=== PATIENT | male | born 1990 | race Caucasian/White ===

== ENCOUNTER 2022-05-05 19:54 | Emergency (ER) | payer SELFPAY ==
[2022-05-05 19:58] VITALS: BP 152/97; PULSE 78; RESP 18; TEMP 37.1; O2SAT 96
[2022-05-05] MEDS: Amoxicillin 875 MG TAB PO (22:40)
[2022-05-05] MEDS: Lidocaine 2% Viscous 15 ML CUP PO (22:48)
--- NOTE | 2022-05-05 22:52 | W.ED.GENAD ---
Discharge Plan Disposition Patient Disposition: Home Condition: Improving Discharge Details Clinical Impression: Dental infection Primary Care Provider: Talya,Local ED Provider: Yobani Quarles Home Meds and New Rx's Prescriptions: New amoxicillin 875 mg tablet 875 mg PO BID Qty: 20 0RF Discharge Instructions Instructions: Dental Abscess (ED) Additional Instructions: Amoxicillin as directed. [id number] medications as directed for symptomatic control. Please watch for new or worsening symptoms and return to the ER for any concerns. Lastly, using the dental list provided, contacted the local dentist tomorrow to see who will be able to evaluate you as an outpatient first. Medical Decision Making 32-year-old gentleman, current smoker, reports right lower dental pain over the past couple of days. Clinically he appears well, nontoxic. He does report ongoing discomfort, and would be open to a dental block. Dental block performed without difficulty, reports pain has almost completely resolved. First dose amoxicillin provided. We will provide a dental list for all of the local dentist. Standard discharge and return precautions were provided. Patient understands, is agreeable to this plan, and has no additional questions or concerns upon discharge. This documentation was generated using [employer] system, please disregard any oddities of phrase or misspellings. Sign Out No HPI General Mode of arrival: ambulatory. Date/Time Provider Initiated Documentation: 05/05/22 21:40. Limitations to Documentation: no limitations. Information obtained by: patient. History of Present Illness 32 year old M presents to the emergency department with the chief complaint of R lower dental pain, described as moderate, with intensity rated at 4. Quality is described as aching, and is localized to the mouth. Patient reports no radiation. Patient started experiencing this day(s) (2) and it has been constant. No relieving factors improve symptom(s), No exacerbating factors reported . Patient notes no other symptoms.. Patient did receive the following treatments prior to arrival, NSAID Related Data Home Medications Medication Instructions Recorded Confirmed amoxicillin 875 mg tablet 875 mg PO BID #20 tabs 05/05/22 Previous Rx's Medication Instructions Recorded amoxicillin 875 mg tablet 875 mg PO BID #20 tabs 05/05/22 Allergies Allergy/AdvReac Type Severity Reaction Status Date / Time No Known Drug Allergies Allergy Unverified 05/05/22 20:04 General Stated Complaint: DentalOral PATRICIA: 4 Review of Systems Constitutional Constitutional: Denies fever(s) and Denies headache(s) ENT Ears, Nose, Mouth, and Throat: Denies headache(s) and Reports mouth pain Integumentary/Breasts Skin/Breast: Denies rash Neurologic Neurologic: Denies headache(s) PFSH All Active Problems (Updated 05/05/22 @ 23:15 by ALEX Méndez) Dental infection (Acute) Social History Smoking/Tobacco Use Status: Current every day Tobacco Type: cigarettes Smoking risk assessment performed?: Yes Alcohol Intake: never Substance use type: does not use Do you feel safe at home: Yes Exam Const General: cooperative, healthy appearing, comfortable and no acute distress Orientation: alert and awake [facility] Head: normal to inspection, normocephalic and atraumatic Face images: 1. Tenderness, no swelling or pointing abscess Mouth: moist mucous membranes Teeth image: 1. Dental decay-caries to the buccal mucosa. Tenderness. No pointing abscess. Airway is patent. No trismus. Throat: posterior oropharynx normal Eyes General: appearance normal, both eyes and all related structures Conjunctivae: conjunctivae normal Neck Neck: normal visual inspection, full ROM, no lymphadenopathy, no meningeal signs, trachea midline, supple and nontender Resp Effort & Inspection: normal respiratory effort and able to speak in complete sentences Skin General skin exam: no rashes or lesions noted Neuro General: patient alert, patient awake, moves all extremities and no focal motor deficits Sensory Exam: no sensory deficits noted Psych Appearance: grossly normal Mental Status: mental status grossly normal Course Vital Signs Vital signs: Vital Signs Temperature 37.1 C 05/05/22 19:58 Pulse 78 05/05/22 19:58 Respiratory Rate 18 05/05/22 19:58 Blood Pressure 152/97 H 05/05/22 19:58 Pulse Oximetry 96 05/05/22 19:58 Temperature 37.1 C 05/05/22 19:58 Temperature Source Oral 05/05/22 19:58 Pulse 78 05/05/22 19:58 Respiratory Rate 18 05/05/22 19:58 Respiratory Effort 05/05/22 20:05 Blood Pressure 152/97 H 05/05/22 19:58 Pulse Oximetry 96 05/05/22 19:58 Oxygen Delivery Method Room Air 05/05/22 19:58 Oxygen Flow Rate 0 05/05/22 19:58 Pain Level 9 05/05/22 19:58 Procedures Nerve Block Nerve Block 1: Time out performed: Yes Local Anesthetic: Lidocaine 2%, Bupivicaine 0.5% and other anesthetic ([id number] mixture) Amount of anesthesia used (mL): 3 Side: right Intraoral Nerve Block: inferior alveolar Procedure Successful: Yes Patient Tolerated Procedure: well and no complications Complications: none
== END 2022-05-05 23:43 | disposition home or self-care (01) ==
PROVIDERS: Emergency Provider Physician Assistant
DX: K04.7 Periapical abscess without sinus (principal)
CPT/HCPCS: 64400

== ENCOUNTER 2022-05-06 00:15 | Emergency (ER) | payer SELFPAY ==
[2022-05-06 00:26] VITALS: BP 126/78; PULSE 68; RESP 16; TEMP 36.8; O2SAT 95
--- NOTE | 2022-05-06 01:01 | ED.GENADUL_ITS ---
Discharge Plan Disposition Patient Disposition: Home Condition: Good Discharge Details Clinical Impression: Dental infection Primary Care Provider: TalyaLocal ED Provider: Jorge Palacios Home Meds and New Rx's Prescriptions: No Action amoxicillin 875 mg tablet 875 mg PO BID Qty: 20 0RF Discharge Instructions Additional Instructions: Please take 800 mg of ibuprofen every 6 hours and 1000 mg of Tylenol every 6 hours to help with the inflammation and pain. These are the maximum doses. Please take the antibiotic as directed to help with the infection in your tooth. Please use the dental list that we have provided to contact the dentist for prompt follow-up and evaluation for tooth removal. Please take the Gladwin pain pill tablets only as needed for breakthrough pain. They have Tylenol in them, and so only take them with 500 mg of Tylenol. If you notice any worsening of your symptoms, or any new symptoms such as difficulty swallowing, difficulty breathing, vomiting, diarrhea, fever, chills, shortness of breath, chest pain, numbness, weakness, or fainting , please return immediately to the emergency department for reevaluation. Please follow up with your primary care provider as soon as possible for reassessment and reevaluation. As always, it was a pleasure participating in your medical care today. Discharge Data Discharge Date/Time-TO BE ENTERED AT DEPARTURE: 05/06/22 01:07 Medical Decision Making 32-year-old male presents for reassessment of dental pain. Patient was here few hours ago, dental block was performed by Yobani Quarles with excellent success, antibiotics were started. Patient went home and the dental block wore off and the pain returned within a few hours. He states that he took 2 extra strength Tylenol at home and this has improved his pain upon arrival now, Patient denies any other complaints at this time. No other modifying factors. No difficulty breathing or swallowing or drinking. Exam demonstrates no signs of periapical abscess, he has poor dentition throughout. No other significant abnormalities. Discussed options of repeat block, versus continued NSAIDs, versus the addition of 3 narcotic pills to help through the night. Patient elected for Gladwin to go. We will give this. Discussed red flags for which to return. I have extensively reviewed the treatment plan and discharge instructions with the patient. I have addressed all patient concerns at this time. The patient was made aware of what symptoms to monitor for that would warrant a return to the emergency department. Discussed the plan with the patient, they demonstrate verbal understanding and agreement with our assessment and plan at this time. The documentation in this chart was dictated using [employer] dictation software. Please excuse any dictation errors. Sign Out No HPI General Date/Time Provider Initiated Documentation: 05/06/22 00:21 . HPI Narrative: 32-year-old male presents for reassessment of dental pain. Patient was here few hours ago, dental block was performed by Yobani Quarles with excellent success, antibiotics were started. Patient went home and the dental block wore off and the pain returned within a few hours. He states that he took 2 extra strength Tylenol at home and this has improved his pain upon arrival now, Patient denies any other complaints at this time. No other modifying factors. No difficulty breathing or swallowing or drinking. Related Data Home Medications Medication Instructions Recorded Confirmed amoxicillin 875 mg tablet 875 mg PO BID #20 tabs 05/05/22 Previous Rx's Medication Instructions Recorded amoxicillin 875 mg tablet 875 mg PO BID #20 tabs 05/05/22 Allergies Allergy/AdvReac Type Severity Reaction Status Date / Time No Known Drug Allergies Allergy Unverified 05/06/22 00:30 General Stated Complaint: DentalOral PATRICIA: 4 Review of Systems All systems reviewed & are unremarkable except as noted in HPI and below PFSH All Active Problems Dental infection (Acute) Social History Smoking/Tobacco Use Status: Current every day Tobacco Type: cigarettes Smoking risk assessment performed?: Yes Alcohol Intake: current Alcohol Intake frequency: a few times a month Substance use type: does not use Do you feel safe at home: Yes Exam Narrative Exam Narrative: 1.Const: Well-nourished, Well-developed, appearing stated age 2.Eyes: PERRL, no conjunctival injection, and symmetrical lids. 3.ENT: Atraumatic external nose and ears. Moist MM. Neck: Symmetric, trachea midline, No thyromegaly. Poor dentition throughout no evidence of periapical abscess, no evidence of respiratory distress. 4.CVS: +S1/S2, No murmurs or gallops. Peripheral pulses 2+ and equal in all extremities. Brisk capillary refill in all extremities. 5.RESP: Unlabored respiratory effort. Clear to auscultation bilaterally. No wheezes rales or rhonchi 6.GI: Soft, Nontender/Nondistended, No hepatosplenomegaly. No guarding or rebound. 7.MSK: Normocephalic/Atraumatic, Extremities w/o deformity or ttp No cyanosis or clubbing, Normal movement of all extremities 8.Skin: Warm, Dry. No rashes or lesions. 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 Sensation grossly intact, no focal neurologic deficits. 10.Psych: (AAO) x3. Appropriate mood and affect Course Vital Signs Vital signs: Vital Signs Temperature 36.8 C 05/06/22 00:26 Pulse 68 05/06/22 00:26 Respiratory Rate 16 05/06/22 00:26 Blood Pressure 126/78 05/06/22 00:26 Pulse Oximetry 95 05/06/22 00:26 Temperature 36.8 C 05/06/22 00:26 Temperature Source Temporal Artery Scan 05/06/22 00:26 Pulse 68 05/06/22 00:26 Respiratory Rate 16 05/06/22 00:26 Respiratory Effort 05/06/22 00:26 Blood Pressure 126/78 05/06/22 00:26 Blood Pressure Position Sitting 05/06/22 00:26 Pulse Oximetry 95 05/06/22 00:26 Oxygen Delivery Method Room Air 05/06/22 00:26 Oxygen Flow Rate 0 05/06/22 00:26 Pain Level 10 05/06/22 00:26
== END 2022-05-06 02:35 | disposition home or self-care (01) ==
PROVIDERS: Emergency Provider Student in an Organized Health Care Education/Training Program
DX: K04.7 Periapical abscess without sinus (principal)
CPT/HCPCS: 99283

== ENCOUNTER 2024-07-14 03:09 | Outpatient (CLI) | payer SELFPAY ==
[2024-07-14 22:34] LABS: HBs Antibody, Quant 53.9 mIU/mL (See Note); Hepatitis B Surface Ab Positive (See Note)
== END 2024-07-14 03:10 | disposition home or self-care (01) ==
PROVIDERS: Visit Provider Nurse Practitioner Family
DX: Z13.9 Encounter for screening, unspecified (principal)
CPT/HCPCS: 36415; 86706